=== PATIENT | female | born 1990 | race Caucasian/White ===

== ENCOUNTER → 2019-06-12 | Outpatient (CLI) | payer OTHER ==
--- NOTE | 2019-06-12 21:05 | CONS ---
CONSULTATION DATE OF SERVICE: 06/12/2019 This patient is a 28-year-old lady who has been evaluated in the sleep center for possible obstructive sleep apnea-hypopnea syndrome. HISTORY OF PRESENT ILLNESS/SLEEP-WAKE EVALUATION: Patient's usual sleep schedule on weekdays is from around 10 p.m. to 6:15 a.m. and on weekends from midnight until 8 a.m. Sometimes the patient has problems with falling asleep, although no TV in bedroom. She sleeps in different positions, but most on the side. She has loud snoring, according to her , and grinds her teeth during sleep. She wakes up from sleep 2 times with one episode of nocturia. In the morning the patient wakes up tired and feels sleepy during the day. [place] Sleepiness Scale is 8. She has episodes of irritability, depression and anxiety. No history of hypnagogic hallucinations, sleep paralysis or cataplexy. MEDICATIONS: 1. Adderall 30 mg 2 times a day, in the morning and around 1 p.m. 2. Melatonin. PAST SURGICAL HISTORY: Cervical surgery. SOCIAL HISTORY: Positive for smoking for about 10 years, 1 pack per week. Alcohol consumption: None. FAMILY HISTORY: Thyroid problems, mental illness. REVIEW OF SYSTEMS: Loud snoring, awakenings from sleep, sleepiness during the day, even while taking 60 mg of Adderall. PHYSICAL EXAMINATION: GENERAL: A pleasant 28-year-old lady without distress. VITAL SIGNS: BP 111/81, HR 84, RR 16, height 5 feet 3 inches, weight 171.4 pounds, temperature 97.8, oxygen saturation at room air 100%. HEENT: PERRLA, EOMI. Evaluation of oropharynx showed tongue protrudes midline. Extremely low position of soft palate. Mallampati IV-III. Restriction of nasal breathing. NECK: Supple. No JVD. Thyroid is not palpable. Neck is 13 inches in circumference. LUNGS: Clear to percussion and to auscultation. Good air exchange. No wheezing or rhonchi. HEART: S1, S2 regular. No murmurs, gallops or rubs. ABDOMEN: Soft and nontender. Bowel sounds are present. No organomegaly. EXTREMITIES: No clubbing or cyanosis. DRAWING OPERATOR: Awake, alert, and oriented X3. Cranial nerves 2 to 7 intact. There is no fasciculation or atrophy. noted. No focal deficits observed. IMPRESSION: 1. Loud snoring, awakenings from sleep, low position of soft palate, excessive daytime sleepiness; possible obstructive sleep apnea-hypopnea syndrome. 2. History of attention deficit hyperactivity disorder, on treatment with Adderall. 3. Tiredness and sleepiness while patient is on Adderall 60 mg a day, with [place] Sleepiness Scale of 8. Differential diagnosis should include hypersomnia and narcolepsy without cataplexy. 4. Bipolar disorder, type 1. 5. Status post cervical surgery. PLAN: 1. Polysomnography for evaluation of patient's breathing during sleep. 2. CPAP/BiPAP titration if sleep study confirms obstructive sleep apnea-hypopnea syndrome. 3. Preferable position during sleep on the side. 4. No driving if patient feels any sleepiness. 5. I will see patient for follow up visit to explain results of testing and following plan. 6. Multiple sleep latency test if the sleep study is negative for obstructive sleep apnea-hypopnea syndrome. No Adderall during the test. Thank you very much for referring this patient for consultation. Sincerely, Jacky Delong MD, PhD, FAASM Diplomat of [employer] [employer] [employer] [facility] [place] MMODL / IJN: [id number] /
== END | disposition home or self-care (01) ==
LOC: SLEEP 15:41
PROVIDERS: ATTEND Internal Medicine
DX: G47.10 Hypersomnia, unspecified (principal); R06.83 Snoring; F31.9 Bipolar disorder, unspecified; F17.210 Nicotine dependence, cigarettes, uncomplicated; Z86.59 Personal history of other mental and behavioral disorders; Z98.890 Other specified postprocedural states; Z79.899 Other long term (current) drug therapy
CPT/HCPCS: 99211

== ENCOUNTER → 2019-08-01 | Outpatient (CLI) | payer OTHER ==
--- NOTE | 2019-08-01 13:42 | SFUN ---
SLEEP CENTER FOLLOW UP NOTE DATE OF SERVICE: 08/01/2019 This 28-year-old lady had been followed in sleep center to discuss results of sleep studies and following plan. Polysomnogram did not show significant respiratory abnormalities. Total apnea-hypopnea index was 4.0 with lowest oxygen level 92.2%, which by today's criteria is in normal range. No significant periodic limb movements have been documented. Multiple sleep latency test showed short mean sleep latency of 6 minutes. No sleep onset REM periods have been documented. Patient usual sleep schedule on school days from 10 p.m. to 6:15 a.m. then she drives her daughter's to school and sleeps for about 3-1/2 hours in the morning and additional 2 hours in the afternoon, which is total about 13 hours. On days when her daughter not at school, she goes to bed around 10 p.m. and sleeps until 11a.m.next day, which is also about 13 hours. The patient is on treatment with Adderall 30 mg 2 times a day for ADHD, and with Adderall she continued to feel sleepy during the day. Today, she took her Adderall. [place] Sleepiness Scale is 12. MEDICATIONS: Adderall 30 mg b.i.d. and melatonin 20 mg at bedtime. PHYSICAL EXAMINATION: During physical exam, patient in no distress. VITAL SIGNS: BP 124/79, HR 84, RR 16, height 5 feet 3 inches, weight 173, body mass index 30.6, oxygen saturation on room air 99%. HEENT: PERRLA, EOMI. Oropharynx low position of soft palate. Mallampati 3. NECK: Supple, no JVD. Thyroid is not palpable. LUNGS: Clear to percussion and to auscultation. Good air exchange. No wheezing or rhonchi. HEART: S1, S2 regular. No murmurs, gallops, or rubs. ABDOMEN: Soft and nontender. Bowel sounds are present. No organomegaly appreciated. EXTREMITIES: No clubbing or cyanosis. DANCE ENTERTAINER:Awake, alert, and oriented X3. Cranial nerves 2 to 7 intact. There is no fasciculation or atrophy. noted. No focal deficits observed. IMPRESSION: 1. Very minimal abnormalities of respiration during the sleep. Apnea-hypopnea index is 4, which is considered to be normal range by today's criteria. No oxygen desaturation. Lowest oxygen level at night 92%. 2. Multiple sleep latency test confirmed sleepiness. Mean sleep latency 6 minutes. No sleep onset REM periods have been documented during the MSLT. 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 3. But short REM sleep latency during diagnostic sleep study, 34.5 minutes, which also may indicate possibility of narcolepsy. 4. History of attention deficit hyperactivity disorder, on treatment with Adderall, but continued to feel sleepy. 5. Bipolar disorder, type I. 6. Status post cervical surgery. PLAN: 1. I will start patient on treatment with modafinil slowly adjusting dose for sleepiness to avoid any side effects. 2. The patient will continue to take Adderall for ADHD. 3. Watching and losing weight. 4. Sleep hygiene with regular time in bed for 8 hours. 5. Extreme precautions to driving. No driving if feeling sleepiness. Patient promised to follow recommendation and she is aware about civil and criminal liability for unsafe driving. 6. Preferable position during sleep on the side. Thank you very much for allowing me to participate in management of your patient. Sincerely, Jacky Delong MD, PhD, FAASM Diplomat of [place] [employer] [employer] [facility] [place] MMSMITHL / MILADISN: [id number] /
== END | disposition home or self-care (01) ==
LOC: SLEEP 11:34
PROVIDERS: ATTEND Internal Medicine
DX: G47.52 REM sleep behavior disorder (principal); R06.89 Other abnormalities of breathing; F90.9 Attention-deficit hyperactivity disorder, unspecified type; F31.9 Bipolar disorder, unspecified; Z98.890 Other specified postprocedural states; Z79.899 Other long term (current) drug therapy

== ENCOUNTER 2024-08-03 05:40 | Observation (INO) | payer OTHER ==
--- NOTE | 2024-08-03 06:37 | ED ---
General Adult HPI - General Stated complaint: Abd pain Time Seen by Provider: 08/03/24 05:59 Source: patient, RN notes reviewed Mode of arrival: ambulatory Limitations: no limitations - History of Present Illness Initial comments: 33-year-old female presents emergency department with chief complaint of right upper quadrant abdominal pain, right side pain. Patient states started around 10 PM last night. She tried multiple antacids without relief. Patient states that she did have pizza for dinner. She denies any prior abdominal surgeries denies chest pain or shortness of breath no fever chills patient offers no complaints of urinary symptoms and chance . - Related Data Home Medications Medication Instructions Recorded Confirmed No Known Home Medications 08/27/14 08/27/14 Allergies Allergy/AdvReac Type Severity Reaction Status Date / Time No Known Allergies Allergy Verified 08/03/24 06:33 Review of Systems ROS Statement: Those systems with pertinent positive or pertinent negative responses have been documented in the HPI. ROS Other: All systems not noted in ROS Statement are negative. Past Medical History Past Medical History: No Reported History History of Any Multi-Drug Resistant Organisms: None Reported Additional Past Surgical History / Comment(s): cerclage Past Psychological History: No Psychological Hx Reported Past Alcohol Use History: Occasional General Exam Limitations: no limitations General appearance: alert, in no apparent distress Head exam: Present: atraumatic, normocephalic, normal inspection Neck exam: Present: normal inspection, full ROM. Absent: tenderness, meningismus, lymphadenopathy Respiratory exam: Present: normal lung sounds bilaterally. Absent: respiratory distress, wheezes, rales, rhonchi, stridor Cardiovascular Exam: Present: regular rate, normal rhythm, normal heart sounds. Absent: systolic murmur, diastolic murmur, rubs, gallop, clicks GI/Abdominal exam: Present: soft, normal bowel sounds. Absent: distended, tenderness, guarding, rebound, rigid Back exam: Absent: CVA tenderness (R), CVA tenderness (L) Neurological exam: Present: alert Course Vital Signs 08/03/24 06:33 Temperature 97.9 F Pulse Rate 71 Respiratory 17 Rate Blood Pressure 134/73 O2 Sat by Pulse 98 Oximetry Medical Decision Making - Medical Decision Making Was pt. sent in by a medical professional or institution (, PA, MANAGEMENT TRAINEE PROGRAM STORES, urgent care, hospital, or halfway...) When possible be specific @ -No Did you speak to anyone other than the patient for history (EMS, parent, family, police, friend...)? What history was obtained from this source @ -No Did you review nursing and triage notes (agree or disagree)? Why? @ -I reviewed and agree with nursing and triage notes Were old charts reviewed (outside hosp., previous admission, EMS record, old EKG, old radiological studies, urgent care reports/EKG's, halfway records)? Report findings @ -No old charts were reviewed Differential Diagnosis (chest pain, altered mental status, abdominal pain women, abdominal pain men, vaginal bleeding, weakness, fever, dyspnea, syncope, headache, dizziness, GI bleed, back pain, seizure, CVA, palpatations, mental health, musculoskeletal)? @ -Differential Abdominal Pain Women: Appendicitis, Cholecystitis, diverticulosis, ischemic bowel, pancreatitis, hepatitis, UTI, gastroenteritis, AAA, incarcerated hernia, bowel obstruction, constipation, inflammatory bowel, hepatitis, peptic ulcer disease, splenic infarction, perforated viscus, vulvitis, ovarian torsion, PID, kidney stone, placenta abruption, this is not meant to be an all-inclusive list EKG interpreted by me (3pts min.). @ -None X-rays interpreted by me (1pt min.). @ -None done CT interpreted by me (1pt min.). @ -None done U/S interpreted by me (1pt. min.). @ -[Ultrasound gallbladder showing evidence of gallstones, gallstones within gallbladder neck What testing was considered but not performed or refused? (CT, X-rays, U/S, l abs)? Why? @ -None What meds were considered but not given or refused? Why? @ -None Did you discuss the management of the patient with other professionals (professionals i.e. , PA, MANAGEMENT TRAINEE PROGRAM STORES, lab, RT, psych nurse, social work coordinator, entry processor, teacher, seismology technical officer, social work case manager)? Give summary @ -Dr. Feliciano for admission Was smoking cessation discussed for >3mins.? @ -No Was critical care preformed (if so, how long)? @ -No Were there social determinants of health that impacted care today? How? (Homelessness, low income, unemployed, alcoholism, drug addiction, transportation, low edu. Level, literacy, decrease access to med. care, alf, rehab)? @ -No Was there de-escalation of care discussed even if they declined (Discuss DNR or withdrawal of care, Hospice)? DNR status @ -No What co-morbidities impacted this encounter? (DM, HTN, Smoking, COPD, CAD, Cancer, CVA, ARF, Chemo, Hep., AIDS, mental health diagnosis, sleep apnea, morbid obesity)? @ -None Was patient admitted / discharged? Hospital course, mention meds given and route, prescriptions, significant lab abnormalities, going to OR and other pertinent info. @ -[Admitted to surgery for probable surgical intervention patient was started on IV antibiotics, analgesics, antiemetics patient found to have cholelithiasis without evidence of choledocholithiasis Undiagnosed new problem with uncertain prognosis? @ -No Drug Therapy requiring intensive monitoring for toxicity (Heparin, Nitro, Insulin, Cardizem)? @ -No Were any procedures done? @ -No Diagnosis/symptom? @ -Cholelithiasis Acute, or Chronic, or Acute on Chronic? @ -Acute Uncomplicated (without systemic symptoms) or Complicated (systemic symptoms)? @ -complicated Side effects of treatment? @ -No Exacerbation, Progression, or Severe Exacerbation? @ -No Poses a threat to life or bodily function? How? (Chest pain, [place], [place], pneumonia, PE, COPD, DKA, ARF, appy, cholecystitis, CVA, Diverticulitis, Homicidal, Suicidal, threat to staff... and all critical care pts) @ -Yes surgical risk - Lab Data Result diagrams: 08/03/24 06:42 08/03/24 06:42 Lab Results 08/03/24 08/03/24 08/03/24 Range/Units 06:42 06:42 06:42 WBC 7.2 (3.8-10.6) k/uL RBC 3.99 (3.80-5.40) m/uL Hgb 11.2 L (11.4-16.0) gm/dL Hct 32.7 L (34.0-46.0) % MCV 82.0 (80.0-100.0) fL MCH 28.1 (25.0-35.0) pg MCHC 34.3 (31.0-37.0) g/dL RDW 12.2 (11.5-15.5) % Plt Count 453 H (150-450) k/uL MPV 6.4 Neutrophils % 52 % Lymphocytes % 38 % Monocytes % 4 % Eosinophils % 4 % Basophils % 1 % Neutrophils # 3.7 (1.3-7.7) k/uL Lymphocytes # 2.8 (1.0-4.8) k/uL Monocytes # 0.3 (0-1.0) k/uL Eosinophils # 0.3 (0-0.7) k/uL Basophils # 0.0 (0-0.2) k/uL Sodium 137 (137-145) mmol/L Potassium 4.0 (3.5-5.1) mmol/L Chloride 105 (98-107) mmol/L Carbon Dioxide 25 (22-30) mmol/L Anion Gap 7 mmol/L BUN 12 (7-17) mg/dL Creatinine 0.64 (0.52-1.04) mg/dL Est GFR (CKD-EPI)AfAm >90 (>60 ml/min/1.73 sqM) Est GFR (CKD-EPI)NonAf >90 (>60 ml/min/1.73 sqM) Glucose 90 (74-99) mg/dL Calcium 10.3 H (8.4-10.2) mg/dL Total Bilirubin 0.4 (0.2-1.3) mg/dL AST 20 (14-36) U/L ALT 20 (4-34) U/L Alkaline Phosphatase 50 (38-126) U/L Total Protein 6.6 (6.3-8.2) g/dL Albumin 4.2 (3.5-5.0) g/dL Lipase 57 (23-300) U/L Urine Color Light Yellow Urine Appearance Clear (Clear) Urine pH 5.5 (5.0-8.0) Ur Specific [place] 1.020 (1.001-1.035) Urine Protein Negative (Negative) Urine Glucose (UA) Negative (Negative) Urine Ketones Negative (Negative) Urine Blood Negative (Negative) Urine Nitrite Negative (Negative) Urine Bilirubin Negative (Negative) Urine Urobilinogen <2.0 (<2.0) mg/dL Ur Leukocyte Esterase Negative (Negative) Urine HCG, Qual (Not Detectd) 08/03/24 Range/Units 06:42 WBC (3.8-10.6) k/uL RBC (3.80-5.40) m/uL Hgb (11.4-16.0) gm/dL Hct (34.0-46.0) % MCV (80.0-100.0) fL MCH (25.0-35.0) pg MCHC (31.0-37.0) g/dL RDW (11.5-15.5) % Plt Count (150-450) k/uL MPV Neutrophils % % Lymphocytes % % Monocytes % % Eosinophils % % Basophils % % Neutrophils # (1.3-7.7) k/uL Lymphocytes # (1.0-4.8) k/uL Monocytes # (0-1.0) k/uL Eosinophils # (0-0.7) k/uL Basophils # (0-0.2) k/uL Sodium (137-145) mmol/L Potassium (3.5-5.1) mmol/L Chloride (98-107) mmol/L Carbon Dioxide (22-30) mmol/L Anion Gap mmol/L BUN (7-17) mg/dL Creatinine (0.52-1.04) mg/dL Est GFR (CKD-EPI)AfAm (>60 ml/min/1.73 sqM) Est GFR (CKD-EPI)NonAf (>60 ml/min/1.73 sqM) Glucose (74-99) mg/dL Calcium (8.4-10.2) mg/dL Total Bilirubin (0.2-1.3) mg/dL AST (14-36) U/L ALT (4-34) U/L Alkaline Phosphatase (38-126) U/L Total Protein (6.3-8.2) g/dL Albumin (3.5-5.0) g/dL Lipase (23-300) U/L Urine Color Urine Appearance (Clear) Urine pH (5.0-8.0) Ur Specific [place] (1.001-1.035) Urine Protein (Negative) Urine Glucose (UA) (Negative) Urine Ketones (Negative) Urine Blood (Negative) Urine Nitrite (Negative) Urine Bilirubin (Negative) Urine Urobilinogen (<2.0) mg/dL Ur Leukocyte Esterase (Negative) Urine HCG, Qual Not Detected (Not Detectd) Disposition Clinical Impression: Cholelithiasis Disposition: ADMITTED IP TO THIS [facility] Condition: Fair Referrals: Rima Aleman DO [Primary Care Provider] - 1-2 days Time of Disposition: 08:54
--- NOTE | 2024-08-03 07:40 | US ---
EXAMINATION TYPE: US gallbladder DATE OF EXAM: 08/03/2024 COMPARISON: NONE CLINICAL INDICATION: Female, 33 years old with history of pain; TECHNIQUE: Multiple sonographic images of the right upper quadrant are obtained. FINDINGS: EXAM MEASUREMENTS: Liver Length: 16.6 cm Gallbladder Wall: 0.3 cm CBD: 0.3 cm Right Kidney: 10.2 x 4.1 x 4.8 cm TESTBOARD OPERATOR NOTES: Pancreas: wnl Liver: wnl Gallbladder: Stones seen within neck , no pericholecystic fluid or wall thickening. Evidence for sonographic Andrea's sign: Yes CBD: wnl Right Kidney: wnl IMPRESSION: Cholelithiasis with telescope maintenance reported positive sonographic Andrea's sign. There is no additional e vidence of acute cholecystitis, correlate clinically, consider HIDA scan.
[2024-08-03] MEDS: KETOROLAC 15 MG/ML 1 ML VIAL IVP STA (08:02)
[2024-08-03] MEDS: ONDANSETRON 4 MG/2 ML VIAL IVP STA (08:06)
[2024-08-03 08:17] LABS: Basophils % (A) 1 %; Eosinophils # (A) 0.3 k/uL (0-0.7); Eosinophils % (A) 4 %; HCT 32.7 % (34.0-46.0); HGB 11.2 gm/dL (11.4-16.0); Lymphocytes # (A) 2.8 k/uL (1.0-4.8); Lymphocytes % (A) 38 %; MCH 28.1 pg (25.0-35.0); MCHC 34.3 g/dL (31.0-37.0); Mean Platelet Volume 6.4; Monocytes # (A) 0.3 k/uL (0-1.0); Monocytes % (A) 4 %; Neutrophils # (A) 3.7 k/uL (1.3-7.7); Neutrophils % (A) 52 %; Platelet Count 453 k/uL (150-450); RBC 3.99 m/uL (3.80-5.40); RDW 12.2 % (11.5-15.5); WBC 7.2 k/uL (3.8-10.6)
[2024-08-03 08:28] LABS: Appearance,Urine Clear (Clear); Bilirubin,Urine Negative (Negative); Blood,Urine Negative (Negative); Color,Urine Light Yellow; Glucose,Urine (UA) Negative (Negative); Ketones,Urine Negative (Negative); Leukocyte Esterase,Urine Negative (Negative); Nitrite,Urine Negative (Negative); PH, Urine 5.5 (5.0-8.0); Protein,Urine Negative (Negative); Urobilinogen,Urine <2.0 mg/dL (<2.0)
[2024-08-03 08:37] LABS: ALT 20 U/L (4-34); AST 20 U/L (14-36); African American GFR (CKD) >90 (>60 ml/min/1.73 sqM); Albumin 4.2 g/dL (3.5-5.0); Alkaline Phosphatase 50 U/L (38-126); Anion Gap 7 mmol/L; Blood Urea Nitrogen 12 mg/dL (7-17); Calcium 10.3 mg/dL (8.4-10.2); Carbon Dioxide 25 mmol/L (22-30); Chloride 105 mmol/L (98-107); Glucose 90 mg/dL (74-99); Lipase 57 U/L (23-300); Non-African American GFR(CKD) >90 (>60 ml/min/1.73 sqM); Sodium 137 mmol/L (137-145); Total Bilirubin 0.4 mg/dL (0.2-1.3); Total Protein 6.6 g/dL (6.3-8.2)
[2024-08-03] MEDS ORDERED: NALOXONE 0.4 MG/ML 1 ML VIAL IV PRN (08:51)
[2024-08-03] MEDS: SODIUM CHLORIDE 0.9% 1,000 ML IV SCH (09:11)
[2024-08-03] MEDS: PIPERACILLIN-TAZOBACTAM 3.375 GM in SODIUM CHLORIDE 0.9% 100 ML IVPB SCH (09:11)
[2024-08-03] MEDS: HYDROmorphone 0.5 MG/0.5 ML SYRINGE IVP PRN (09:52)
[2024-08-03] MEDS: ONDANSETRON 4 MG/2 ML VIAL IVP PRN (09:53)
--- NOTE | 2024-08-03 10:29 | P.GSHP ---
History of Present Illness H&P Date: 08/03/24 33-year-old female presented to the emergency department with chief complaint of right upper quadrant abdominal pain. Patient states started around 10 PM last night. She tried multiple antacids without relief. Patient states that she did have pizza for dinner. She denies any prior abdominal surgeries denies chest pain or shortness of breath no fever chills patient offers no complaints of urinary symptoms and chance . She had a RUQ US performed concerning for acute cholecystitis with stone impacted in Gallbladder neck. Review of Systems ROS Statement: Those systems with pertinent positive or pertinent negative responses have been documented in the HPI. ROS Other: All systems not noted in ROS Statement are negative. Past Medical History Past Medical History: No Reported History History of Any Multi-Drug Resistant Organisms: None Reported Additional Past Surgical History / Comment(s): cerclage Past Psychological History: No Psychological Hx Reported Past Alcohol Use History: Occasional General Exam Limitations: no limitations General appearance: alert, in no apparent distress Head exam: Present: atraumatic, normocephalic, normal inspection Neck exam: Present: normal inspection, full ROM. Absent: tenderness, meningismus, lymphadenopathy Respiratory exam: Present: normal lung sounds bilaterally. Absent: respiratory distress, wheezes, rales, rhonchi, stridor Cardiovascular Exam: Present: regular rate, normal rhythm, normal heart sounds. Absent: systolic murmur, diastolic murmur, rubs, gallop, clicks GI/Abdominal exam: Present: soft, normal bowel sounds. Absent: distended, tenderness, guarding, rebound, rigid Back exam: Absent: CVA tenderness (R), CVA tenderness (L) Neurological exam: Present: alert 33 year old female acute cholecystitis -US reviewed -FLD -Zosyn -Will plan for Cholecystectomy in the next 24 hours Phillip Feliciano DO [facility] [phone] Past Medical History Past Medical History: No Reported History History of Any Multi-Drug Resistant Organisms: None Reported Additional Past Surgical History / Comment(s): cerclage Past Psychological History: No Psychological Hx Reported Past Alcohol Use History: Occasional Medications and Allergies Home Medications Medication Instructions Recorded Confirmed Type No Known Home Medications 08/27/14 08/27/14 History Allergies Allergy/AdvReac Type Severity Reaction Status Date / Time No Known Allergies Allergy Verified 08/03/24 06:33 Surgical - Exam Vital Signs Temp Pulse Resp BP Pulse Ox 97.9 F 71 17 134/73 98 08/03/24 06:33 08/03/24 06:33 08/03/24 06:33 08/03/24 06:33 08/03/24 06:33 Results - Labs 08/03/24 06:42 08/03/24 06:42 Abnormal Lab Results - Last 24 Hours (Table) 08/03/24 08/03/24 Range/Units 06:42 06:42 Hgb 11.2 L (11.4-16.0) gm/dL Hct 32.7 L (34.0-46.0) % Plt Count 453 H (150-450) k/uL Calcium 10.3 H (8.4-10.2) mg/dL Diabetes panel 08/03/24 Range/Units 06:42 Sodium 137 (137-145) mmol/L Potassium 4.0 (3.5-5.1) mmol/L Chloride 105 (98-107) mmol/L Carbon Dioxide 25 (22-30) mmol/L BUN 12 (7-17) mg/dL Creatinine 0.64 (0.52-1.04) mg/dL Glucose 90 (74-99) mg/dL Calcium 10.3 H (8.4-10.2) mg/dL AST 20 (14-36) U/L ALT 20 (4-34) U/L Alkaline Phosphatase 50 (38-126) U/L Total Protein 6.6 (6.3-8.2) g/dL Albumin 4.2 (3.5-5.0) g/dL Calcium panel 08/03/24 Range/Units 06:42 Calcium 10.3 H (8.4-10.2) mg/dL Albumin 4.2 (3.5-5.0) g/dL Pituitary panel 08/03/24 Range/Units 06:42 Sodium 137 (137-145) mmol/L Potassium 4.0 (3.5-5.1) mmol/L Chloride 105 (98-107) mmol/L Carbon Dioxide 25 (22-30) mmol/L BUN 12 (7-17) mg/dL Creatinine 0.64 (0.52-1.04) mg/dL Glucose 90 (74-99) mg/dL Calcium 10.3 H (8.4-10.2) mg/dL Adrenal panel 08/03/24 Range/Units 06:42 Sodium 137 (137-145) mmol/L Potassium 4.0 (3.5-5.1) mmol/L Chloride 105 (98-107) mmol/L Carbon Dioxide 25 (22-30) mmol/L BUN 12 (7-17) mg/dL Creatinine 0.64 (0.52-1.04) mg/dL Glucose 90 (74-99) mg/dL Calcium 10.3 H (8.4-10.2) mg/dL Total Bilirubin 0.4 (0.2-1.3) mg/dL AST 20 (14-36) U/L ALT 20 (4-34) U/L Alkaline Phosphatase 50 (38-126) U/L Total Protein 6.6 (6.3-8.2) g/dL Albumin 4.2 (3.5-5.0) g/dL
--- NOTE | 2024-08-03 19:29 | P.CONS ---
History of Present Illness - Reason for Consult Consult date: 08/03/24 Medical management - Chief Complaint Abdominal pain - History of Present Illness Patient is a 33-year-old female with a known history of diabetes [id number], anxiety/depression and daily vaping presents to ER with complaints of abdominal pain. Patient states that yesterday around 10 PM she started having right upper quadrant abdominal pain below the rib cage and radiated towards the umbilicus. Associated with fever chills and nausea. No episodes of vomiting. Patient tried multiple antacids without much relief. Denied any prior abdominal surgeries. No complaints of cough or sputum production. No chest pain or shortness of breath. No recent diarrhea. Ultrasound gallbladder showed cholelithiasis with sonographic reported positive sonographic Andrea sign. There is no additional evidence of acute cholecystitis. Correlate clinically., Consider HIDA scan. Laboratory data showed WBC 7.2 hemoglobin 11.2 and platelets 453 MCV 82.0, sodium 137 potassium 4.0 chloride 104 bicarb is 25 BUN 12 and creatinine 0.64 and blood sugar 90 and calcium 10.3 Urinalysis is negative for infection. Lipase 57 and liver enzymes are not elevated. Review of Systems Constitutional: Patient does have subjective fever and chills.. No generalized weakness or weight loss. Abdomen: Patient does have nausea. Abdominal pain. No diarrhea or vomiting. Cardiovascular: Patient denies any chest pain or short of breath no palpitations. Respiratory: patient denied any cough or sputum production. No shortness of breath Neurologic: Patient denied any numbness or tingling. no headache. Musculoskeletal: Patient denies any complaints of joint swelling or deformity. Skin: Negative Psychiatric: Negative Endocrine: No heat or cold intolerance. No recent weight gain. Genitourinary: No dysuria or hematuria. All other 14 point ROS negative except the above Past Medical History Past Medical History: No Reported History History of Any Multi-Drug Resistant Organisms: None Reported Additional Past Surgical History / Comment(s): cerclage Past Psychological History: No Psychological Hx Reported Smoking Status: Vaper Past Alcohol Use History: Occasional Past Drug Use History: None Reported Medications and Allergies Home Medications Medication Instructions Recorded Confirmed Type Lisdexamfetamine Dimesylate 30 mg PO AC-BRKFST 08/03/24 08/03/24 History [Vyvanse] Lisdexamfetamine Dimesylate 40 mg PO AC-BRKFST 08/03/24 08/03/24 History [Vyvanse] busPIRone HCL [Buspar] 30 mg PO BID 08/03/24 08/03/24 History hydrOXYzine pamoate [Vistaril] 25 mg PO QID 08/03/24 08/03/24 History lamoTRIgine 150 mg PO BID 08/03/24 08/03/24 History metFORMIN HCL 500 mg PO DAILY 08/03/24 08/03/24 History Allergies Allergy/AdvReac Type Severity Reaction Status Date / Time No Known Allergies Allergy Verified 08/03/24 17:31 Physical Exam Vitals: Vital Signs Temp Pulse Pulse Resp BP BP Pulse Ox 08/03/24 17:52 98.2 F 56 L 16 102/60 99 08/03/24 16:57 78 18 94/63 96 08/03/24 15:00 98.2 F 56 L 16 102/60 99 08/03/24 10:30 113/77 97 08/03/24 10:00 122/82 97 08/03/24 06:33 97.9 F 71 17 134/73 98 Intake and Output 08/03/24 08/03/24 08/03/24 06:59 14:59 22:59 Other: Weight 86.183 kg 86.183 kg PHYSICAL EXAMINATION: Patient is lying in the bed comfortably, no acute distress, awake alert and oriented.. HEENT: Normocephalic. Neck is supple. Pupils reactive. Nostrils clear. Oral cavity is moist. Neck reveals no JVD, carotid bruits, or thyromegaly. CHEST EXAMINATION: Trachea is central. Symmetrical expansion. Lung gerardo clear to auscultation and percussion. CARDIAC: Normal S1, S2 with no gallops. No murmurs ABDOMEN: Soft. Bowel sounds present. Right upper quadrant tenderness with positive Andrea sign.. No organomegaly. No abdominal bruits. Extremities: reveal no edema. No clubbing or cyanosis Neurologically awake, alert, oriented x3 with well-coordinated movements. No focal deficits noted Skin: No rash or skin lesions. Psychiatric: Coperative. Nonsuicidal Musculoskeletal: No joint swelling or deformity. Normal range of motion. Results CBC & Chem 7: 08/03/24 06:42 08/03/24 06:42 Labs: Abnormal Lab Results - Last 24 Hours (Table) 08/03/24 08/03/24 Range/Units 06:42 06:42 Hgb 11.2 L (11.4-16.0) gm/dL Hct 32.7 L (34.0-46.0) % Plt Count 453 H (150-450) k/uL Calcium 10.3 H (8.4-10.2) mg/dL Assessment and Plan Assessment: Right upper quadrant abdominal pain with positive sonographic Andrea sign. Acute cholecystitis Anxiety/depression Diabetes type 2 gum-jtvllxj-ykoycciuo DVT prophylaxis and GI prophylaxis. Plan: Patient will be continued on IV hydration. Continue with pain management. Empiric antibiotics in the form of Zosyn. General surgery is planning for cholecystectomy in the next 24 hours. Patient will be managed on insulin sliding scale. Follow-up repeat CMP and monitor H&H. Patient is at low risk for abdominal surgery. Further recom mendations based on the clinical course. Thank you kindly for your consult.
[2024-08-03] MEDS: busPIRone HCl 10 MG TAB PO SCH (20:09)
[2024-08-03] MEDS: FAMOTIDINE 20 MG TAB PO SCH (20:09)
[2024-08-03] MEDS: lamoTRIgine 100 MG TAB PO SCH (20:10)
--- NOTE | 2024-08-04 06:35 | P.PN ---
Progress Note - Text Progress Note Date: 08/04/24 KAYLEENEO. Patient resting comfortable. Having some RUQ pain. VSS General-NAD Abdomen-soft, TTP RUQ, ND 33 year old female acute cholecystitis -US reviewed -FLD, NPO/midnight -Xavier -Boarded for Cholecystectomy tomorrrow morning 08/05 Phillip Feliciano [facility] [phone]
[2024-08-04 09:36] LABS: Basophils # (A) 0.04 X 10*3/uL (0.00-0.10); Basophils % (A) 0.6 %; Eosinophils # (A) 0.26 X 10*3/uL (0.04-0.35); Eosinophils % (A) 3.8 %; HGB 10.2 g/dL (12.0-15.0); Lymphocytes % (A) 45.7 %; MCH 27.9 pg (27.0-32.0); MCHC 32.9 g/dL (32.0-37.0); MCV 84.9 FL (80.0-97.0); Mean Platelet Volume 9.6 FL (9.5-12.2); Monocytes # (A) 0.37 X 10*3/uL (0.20-1.00); Monocytes % (A) 5.4 %; NRBC Per 100 WBC 0 X 10*3/uL (0.00-0.01); Neutrophils # (A) 2.99 X 10*3/uL (1.80-7.70); Neutrophils % (A) 44.1 %; Platelet Count 387 X 10*3/uL (140-440); RBC 3.65 X 10*6/uL (4.10-5.20); RDW 12.5 % (11.5-14.5); WBC 6.79 X 10*3/uL (4.50-10.00)
[2024-08-04 10:01] LABS: ALT 16 U/L (8-44); AST 13 U/L (13-35); Albumin 3.7 g/dL (3.8-4.9); Albumin/Globulin Ratio 1.95 Ratio (1.60-3.17); Alkaline Phosphatase 49 U/L (41-126); BUN/Creat Ratio 10.12 Ratio (12.00-20.00); Blood Urea Nitrogen 8.1 mg/dL (9.0-27.0); Calcium 8.5 mg/dL (8.7-10.3); Carbon Dioxide 22.9 mmol/L (21.6-31.8); Chloride 108 mmol/L (96-109); Globulin 1.9 g/dL (1.6-3.3); Glucose 82 mg/dL (70-110); Potassium 4.2 mmol/L (3.5-5.5); Sodium 139 mmol/L (135-145); Total Bilirubin 0.2 mg/dL (0.3-1.2); Total Protein 5.6 g/dL (6.2-8.2)
[2024-08-05 09:47] LABS: Basophils # (A) 0.04 X 10*3/uL (0.00-0.10); Basophils % (A) 0.6 %; Eosinophils # (A) 0.27 X 10*3/uL (0.04-0.35); Eosinophils % (A) 3.9 %; HCT 30.2 % (37.2-46.3); HGB 10.1 g/dL (12.0-15.0); Lymphocytes # (A) 2.97 X 10*3/uL (0.90-5.00); Lymphocytes % (A) 42.6 %; MCH 28.9 pg (27.0-32.0); MCHC 33.4 g/dL (32.0-37.0); MCV 86.3 FL (80.0-97.0); Mean Platelet Volume 9.7 FL (9.5-12.2); Monocytes # (A) 0.41 X 10*3/uL (0.20-1.00); Monocytes % (A) 5.9 %; NRBC Per 100 WBC 0 X 10*3/uL (0.00-0.01); Neutrophils # (A) 3.28 X 10*3/uL (1.80-7.70); Neutrophils % (A) 46.9 %; Platelet Count 373 X 10*3/uL (140-440); RDW 12.6 % (11.5-14.5); WBC 6.98 X 10*3/uL (4.50-10.00)
[2024-08-05 10:19] LABS: ALT 18 U/L (8-44); AST 15 U/L (13-35); Albumin 3.9 g/dL (3.8-4.9); Albumin/Globulin Ratio 2.17 Ratio (1.60-3.17); Alkaline Phosphatase 46 U/L (41-126); BUN/Creat Ratio 6.12 Ratio (12.00-20.00); Bilirubin, Conjugated <0.20 mg/dL (0.20-0.40); Bilirubin,Unconjugated >0 mg/dL (0.20-1.00); Blood Urea Nitrogen 4.9 mg/dL (9.0-27.0); Calcium 8.8 mg/dL (8.7-10.3); Carbon Dioxide 22.4 mmol/L (21.6-31.8); Chloride 107 mmol/L (96-109); Globulin 1.8 g/dL (1.6-3.3); Glucose 81 mg/dL (70-110); Potassium 4.4 mmol/L (3.5-5.5); Sodium 139 mmol/L (135-145); Total Bilirubin 0.2 mg/dL (0.3-1.2); Total Protein 5.7 g/dL (6.2-8.2)
--- NOTE | 2024-08-05 11:04 | P.PN ---
Subjective Progress Note Date: 08/05/24 N.p.o. for laparoscopic cholecystectomy. Reports right upper quadrant -positive pain. Denies nausea /vomiting. Denies chills or sweats. Complains of headache. Maintained on IV fluid hydration and Zosyn. Afebrile, normal WBC. Renal function stable. Objective - Vital Signs Vital signs: Vital Signs Temp 98.2 F 08/05/24 07:00 Pulse 82 08/05/24 02:00 Resp 16 08/05/24 07:00 BP 111/73 08/05/24 07:00 Pulse Ox 96 08/05/24 07:00 FiO2 Intake & Output 08/04/24 08/05/24 08/05/24 18:59 06:59 18:59 Output Total 300 Balance -300 Output: Urine 300 Other: Voiding Method Toilet Toilet # Voids 2 3 - Exam PHYSICAL EXAMINATION: VS: Reviewed General: Alert and oriented x 3, sitting up in bed, no acute distress HEENT: Normocephalic.Pupils reactive. NECK: Supple, no JVD. CHEST EXAMINATION: Unlabored, equal air entry, clear to auscultation. CARDIAC: Normal S1, S2 with no gallops. No murmurs ABDOMEN: Soft. Right upper quadrant tenderness .bowel sounds present. Right upper quadrant tenderness,+BS Extremities: no edema. No clubbing or cyanosis. NEURO: Cranial nerves II through XII grossly intact, no focal deficits noted Skin: Warm and dry, no rashes noted - Labs CBC & Chem 7: 08/05/24 02:45 08/05/24 02:45 Labs: Abnormal Lab Results - Last 24 Hours (Table) 08/05/24 08/05/24 Range/Units 02:45 02:45 RBC 3.50 L (4.10-5.20) X 10*6/uL Hgb 10.1 L (12.0-15.0) g/dL Hct 30.2 L (37.2-46.3) % BUN 4.9 L (9.0-27.0) mg/dL BUN/Creatinine Ratio 6.12 L (12.00-20.00) Ratio Total Bilirubin 0.2 L (0.3-1.2) mg/dL Unconjugated Bilirubin >0 L (0.20-1.00) mg/dL Total Protein 5.7 L (6.2-8.2) g/dL Assessment and Plan Assessment: RUQ tenderness,Acute cholecystitis Anxiety/depression Diabetes type 2 [id number] DVT prophylaxis and GI prophylaxis. Plan: Continue current medication regimen ,monitoring and symptomatic treatment.NPO, maintain IV fluid hydration, Zosyn. Cholecystectomy pending. IV Tylenol ordered for headache. Aggressive pulmonary toileting with incentive spirometer ordered. PPI ordered for GI prophylaxis. The impression and plan of care has been dictated as directed. : I performed a history and examination of this patient, discussed the same with the dictator. I agree with the dictator's note ,documented as a scribe. Any ad ditional findings or plans will be noted.
[2024-08-05] MEDS: DEXAMETHASONE SOD PHOSPHATE 4 MG/ML 1 ML VIAL IVP STA (12:50)
[2024-08-05] MEDS: IV FLUID CONTINUATION 800 ML IV ONE (13:00)
[2024-08-05] MEDS ORDERED: ROCURONIUM 10 MG/ML (5 ML VIAL) IV ONE (13:08)
[2024-08-05] MEDS ORDERED: SUGAMMADEX SODIUM 200 MG/2 ML SDV IV ONE (13:08)
[2024-08-05] MEDS ORDERED: GLYCOPYRROLATE 0.2 MG/ML 2 ML VIAL ONE (13:08)
[2024-08-05] MEDS ORDERED: KETOROLAC 15 MG/ML 1 ML VIAL ONE (13:08)
[2024-08-05] MEDS ORDERED: LIDOCAINE 1% INJ 10MG/ML (20 ML MDV) ONE (13:08)
[2024-08-05] MEDS ORDERED: PHENYLEPHRINE-0.9% NACL SYG 1,000 MCG/10 ML SYRINGE ONE (13:08)
[2024-08-05] MEDS ORDERED: MIDAZOLAM 2 MG/2 ML VIAL ONE (13:08)
[2024-08-05] MEDS ORDERED: SUCCINYLCHOLINE CHLORIDE 200 MG/10 ML VIAL IV ONE (13:08)
[2024-08-05] MEDS ORDERED: fentaNYL (PF) 50 MCG/ML 2 ML AMP ONE (13:08)
[2024-08-05] MEDS ORDERED: PROPOFOL 10 MG/ML 20 ML VIAL IV ONE (13:08)
[2024-08-05] MEDS: HEPARIN SODIUM,PORCINE 5,000 UNIT/ML 1 ML VIAL SQ STA (13:10)
[2024-08-05] MEDS: BUPIVACAINE (PF) 0.25% 30 ML VIAL SQ ONE (13:53)
[2024-08-05] MEDS: LACTATED RINGERS 1,000 ML IV ONE (13:53)
[2024-08-05] MEDS: HYDROmorphone 0.5 MG/0.5 ML SYRINGE IVP SCH (14:29)
[2024-08-05] MEDS ORDERED: HYDROmorphone 1 MG/ML 1 ML SYRINGE IM PRN (14:31)
--- NOTE | 2024-08-05 14:44 | P.OP ---
Date of Procedure: 08/05/24 Preoperative Diagnosis: Acute Cholecystitis Postoperative Diagnosis: Acute Cholecystitis Procedure(s) Performed: Laparoscopic Cholecystectomy Anesthesia: MAC Surgeon: Phillip Feliciano Estimated Blood Loss (ml): 10 Pathology: other (Gallbladder) Condition: stable Disposition: PACU Description of Procedure: The patient was brought to the operating suite and placed in the supine position. Anesthesia performed endotracheal intubation and anesthesia was given. The patient was prepped and draped in sterile fashion. A timeout was performed prior to starting the procedure. An #11 blade was used to make an incision at [place] and a 5 mm optiview was used to gain access to the abdomen. The abdomen was insufflated. The patient was positioned for cholecystectomy. Additional working ports for cholecystectomy were placed. The gallbladder was retracted by the fundus and infundibulum. Dissection was performed and the cystic artery and cystic duct were clearly dissected out until the duct and artery were clearly seen entering the gallbladder. A critical view of safety was obtained. A clip promotions producer was used to place two clips proximally and two clips distally on both the cystic duct and cystic artery. The duct and artery were then divided with scissors. A hook cautery was then used to take the gallbladder off of the liver. There was no major bleeding encountered. The gallbladder was then removed with an EndoCatch Bag through the 12 mm port. The 12 mm port was then closed with an #0 Vicryl Suture using a Choco Rossy. The ports were then removed. Skin incisions were then closed with #4-0 Monocryl Suture. 1 % Lidocaine was then injected around the incisions. This concluded the procedure. The patient tolerated the surgery well and was sent to the PACU in stable condition.
[2024-08-05] MEDS: ACETAMINOPHEN IV (For NPO) 1,000 MG in EMPTY BAG 1 BAG IVPB STA (15:28)
[2024-08-05] MEDS: PANTOPRAZOLE 40 MG/10 ML VIAL IVP SCH (15:29)
[2024-08-05] MEDS: HYDROcodone/APAP 10-325MG 1 EACH TAB PO PRN (17:38)
[2024-08-05] MEDS: BENZOCAINE/MENTHOL LOZENG 1 EACH LOZENGE MUCOUS MEM PRN (18:11)
[2024-08-05] MEDS: HYDROmorphone 1 MG/ML 1 ML SYRINGE IVP PRN (20:03)
[2024-08-06 07:59] VITALS: BP 123/69; PULSE 69; RESP 16; TEMP 98.4
[2024-08-06 08:54] LABS: ALT 111 U/L (8-44); AST 119 U/L (13-35); Albumin/Globulin Ratio 1.82 Ratio (1.60-3.17); Alkaline Phosphatase 85 U/L (41-126); BUN/Creat Ratio 5.38 Ratio (12.00-20.00); Bilirubin, Conjugated <0.20 mg/dL (0.20-0.40); Bilirubin,Unconjugated >0.10 mg/dL (0.20-1.00); Blood Urea Nitrogen 4.3 mg/dL (9.0-27.0); Calcium 9.1 mg/dL (8.7-10.3); Carbon Dioxide 20.8 mmol/L (21.6-31.8); Chloride 106 mmol/L (96-109); Globulin 2.2 g/dL (1.6-3.3); Glucose 109 mg/dL (70-110); Potassium 4.3 mmol/L (3.5-5.5); Sodium 138 mmol/L (135-145); Total Bilirubin 0.3 mg/dL (0.3-1.2); Total Protein 6.2 g/dL (6.2-8.2)
[2024-08-06 08:54] LABS: Basophils # (A) 0.03 X 10*3/uL (0.00-0.10); Basophils % (A) 0.4 %; Eosinophils # (A) 0.03 X 10*3/uL (0.04-0.35); Eosinophils % (A) 0.4 %; HCT 29.1 % (37.2-46.3); HGB 10.1 g/dL (12.0-15.0); Lymphocytes # (A) 1.66 X 10*3/uL (0.90-5.00); MCH 28.2 pg (27.0-32.0); MCHC 34.7 g/dL (32.0-37.0); MCV 81.3 FL (80.0-97.0); Mean Platelet Volume 9.4 FL (9.5-12.2); Monocytes # (A) 0.49 X 10*3/uL (0.20-1.00); Monocytes % (A) 6.5 %; NRBC Per 100 WBC 0 X 10*3/uL (0.00-0.01); Neutrophils # (A) 5.31 X 10*3/uL (1.80-7.70); Neutrophils % (A) 70.4 %; Platelet Count 385 X 10*3/uL (140-440); RBC 3.58 X 10*6/uL (4.10-5.20); RDW 11.8 % (11.5-14.5); WBC 7.54 X 10*3/uL (4.50-10.00)
[2024-08-06] MEDS ORDERED: DEXTROSE 50% SYRINGE 50 ML IVP PRN ×2 (09:26)
--- NOTE | 2024-08-06 09:28 | P.PN ---
Subjective Progress Note Date: 08/06/24 N.p.o. for laparoscopic cholecystectomy. Reports right upper quadrant -positive pain. Denies nausea /vomiting. Denies chills or sweats. Complains of headache. Maintained on IV fluid hydration and Zosyn. Afebrile, normal WBC. Renal function stable. 08/06/2024 status post laparoscopic cholecystectomy, tolerated procedure well. Reported gas pain postop, required Dilaudid. Pain currently controlled, passing flatus. Feels better, sitting up in chair, playing cards with significant other. ambulating, tolerating exertion well.Denies nausea or vomiting. No bowel movement. Afebrile, normal WBC. Hemoglobin, renal function stable. T. bili 0.3. Blood sugars controlled. Objective - Vital Signs Vital signs: Vital Signs Temp 98.4 F 08/06/24 07:35 Pulse 69 08/06/24 07:35 Resp 16 08/06/24 07:35 BP 123/69 08/06/24 07:35 Pulse Ox 95 08/06/24 07:35 FiO2 Intake & Output 08/05/24 08/06/24 08/06/24 18:59 06:59 18:59 Intake Total 1018 Output Total 10 Balance 1008 Intake: IV 900 Oral 118 Output: Estimated Blood Loss 10 Other: Voiding Method Toilet Toilet # Voids 1 - Exam PHYSICAL EXAMINATION: VS: Reviewed General: Alert and oriented x 3, sitting up in chair, no acute distress HEENT: Normocephalic.Pupils reactive. Conjunctiva normal. NECK: Supple, no JVD. CHEST EXAMINATION: Unlabored, equal air entry, clear to auscultation. CARDIAC: Normal S1, S2 with no gallops. No murmurs ABDOMEN: Soft. Status post surgery, positive bowel sounds Extremities: no edema. No clubbing or cyanosis. NEURO: Cranial nerves II through XII grossly intact, strength and sensation grossly intact. Skin: Warm and dry, no rashes noted - Labs CBC & Chem 7: 08/06/24 05:49 08/06/24 02:27 Labs: Abnormal Lab Results - Last 24 Hours (Table) 08/05/24 08/05/24 08/06/24 Range/Units 02:45 02:45 02:27 RBC 3.50 L (4.10-5.20) X 10*6/uL Hgb 10.1 L (12.0-15.0) g/dL Hct 30.2 L (37.2-46.3) % MPV (9.5-12.2) FL Eosinophils # (0.04-0.35) X 10*3/uL Carbon Dioxide 20.8 L (21.6-31.8) mmol/L BUN 4.9 L 4.3 L (9.0-27.0) mg/dL BUN/Creatinine Ratio 6.12 L 5.38 L (12.00-20.00) Ratio Total Bilirubin 0.2 L (0.3-1.2) mg/dL Unconjugated Bilirubin >0 L >0.10 L (0.20-1.00) mg/dL AST 119 H (13-35) U/L ALT 111 H (8-44) U/L Total Protein 5.7 L (6.2-8.2) g/dL 08/06/24 Range/Units 05:49 RBC 3.58 L (4.10-5.20) X 10*6/uL Hgb 10.1 L (12.0-15.0) g/dL Hct 29.1 L (37.2-46.3) % MPV 9.4 L (9.5-12.2) FL Eosinophils # 0.03 L (0.04-0.35) X 10*3/uL Carbon Dioxide (21.6-31.8) mmol/L BUN (9.0-27.0) mg/dL BUN/Creatinine Ratio (12.00-20.00) Ratio Total Bilirubin (0.3-1.2) mg/dL Unconjugated Bilirubin (0.20-1.00) mg/dL AST (13-35) U/L ALT (8-44) U/L Total Protein (6.2-8.2) g/dL Assessment and Plan Assessment: Acute cholecystitis, status post laparoscopic cholecystectomy Anxiety/depression Diabetes type 2 [id number] DVT prophylaxis and GI prophylaxis. Plan: Continue current medication regimen ,monitoring and symptomatic treatment.increase ambulation as tolerated. Maintain aggressive pulmonary toileting with incentive spirometer ordered. Medically cleared for discharge. Follow-up with PCP in 1 week. The impression and plan of care has been dictated as directed. : I performed a history and examination of this patient, discussed the same with the dictator. I agree with the dictator's note ,documented as a scribe. Any additional findings or plans will be noted.
[2024-08-06 12:13] LABS: Glucose,Whole Blood 114 mg/dL (70-110)
[2024-08-06] MEDS: INSULIN ASPART (NovoLOG) 100 UNIT/ML VIAL SQ SCH (12:17)
--- NOTE | 2024-08-06 13:12 | P.DS ---
Providers Date of admission: 08/03/24 09:02 Expected date of discharge: 08/06/24 Attending physician: Phillip Feliciano DO Consults: 08/03/24 08:51 Consult Physician Urgent Consulting Provider: Mariano Britton Reason/Comments: Medical management Do you want consulting provider notified?: Yes Primary care physician: Rima Aleman Hospital Course: Discharge diagnosis 1. Acute cholecystitis Hospital course This is a 33-year-old female who presented with right upper quadrant abdominal pain. She had a RUQ US performed concerning for acute cholecystitis with stone impacted in Gallbladder neck. Patient is status post laparoscopic cholecystectomy. Patient tolerated surgery well. Her pain is controlled. She is tolerating diet. She is afebrile. She has been up and ambulating. She is stable for discharge. Please refer to chart for any further details. Physician Community Program Assistant note has been reviewed by physician. Signing provider agrees with the documented findings, assessment, and plan of care. Attestation Patient seen and examined at bedside. Doing well since her surgery for laparoscopic cholecystectomy. Pain has significantly improved. Tolerating diet. She is surgically stable for discharge. Bilirubin and laboratory values were reviewed. She is to follow-up in the outpatient clinic in 2 weeks. Ashley Ramos DO Patient Condition at Discharge: Stable Plan - Discharge Summary New Discharge Prescriptions: New HYDROcodone/APAP 7.5-325MG [[place] 7.5-325] 1 tab PO Q6HR PRN 3 Days #12 tab PRN Reason: Pain Continue Lisdexamfetamine Dimesylate [Vyvanse] 40 mg PO AC-BRKFST Lisdexamfetamine Dimesylate [Vyvanse] 30 mg PO AC-BRKFST lamoTRIgine 150 mg PO BID metFORMIN HCL 500 mg PO DAILY hydrOXYzine pamoate [Vistaril] 25 mg PO QID busPIRone HCL [Buspar] 30 mg PO BID Discharge Medication List Lisdexamfetamine Dimesylate [Vyvanse] 30 mg PO AC-BRKFST 08/03/24 [History] Lisdexamfetamine Dimesylate [Vyvanse] 40 mg PO AC-BRKFST 08/03/24 [History] busPIRone HCL [Buspar] 30 mg PO BID 08/03/24 [History] hydrOXYzine pamoate [Vistaril] 25 mg PO QID 08/03/24 [History] lamoTRIgine 150 mg PO BID 08/03/24 [History] metFORMIN HCL 500 mg PO DAILY 08/03/24 [History] HYDROcodone/APAP 7.5-325MG [[place] 7.5-325] 1 tab PO Q6HR PRN 3 Days #12 tab 08/06/24 [Rx] Follow up Appointment(s)/Referral(s): Mariano Britton MD [STAFF PHYSICIAN] - 1 Week Phillip Feliciano DO [Medical Doctor] - 08/20/24 8:00 am Patient Instructions/Handouts: *Surgery [facility] - Laparoscopic Cholecystectomy Discharge Instructions Activity/Diet/Wound Care/Special Instructions: No driving while taking [place] No lifting over 10 pounds You may shower. No soaking or tub baths for 2 weeks Very light activity until you are reevaluated at your follow up appointment with your surgeon Follow a low fat diet Discharge Disposition: HOME SELF-CARE
== END 2024-08-06 13:40 | disposition home or self-care (01) ==
LOC: EC 05:40 → 6NMEDSUR 09:02
PROVIDERS: ADMIT Surgery; ATTEND Surgery
DX: K80.12 Calculus of gallbladder with acute and chronic cholecystitis without obstruction (principal); R51.9 Headache, unspecified; E11.9 Type 2 diabetes mellitus without complications; R79.89 Other specified abnormal findings of blood chemistry; F41.9 Anxiety disorder, unspecified; F32.A Depression, unspecified; F17.290 Nicotine dependence, other tobacco product, uncomplicated; Z79.84 Long term (current) use of oral hypoglycemic drugs; Z79.899 Other long term (current) drug therapy
CPT/HCPCS: 36415; 76705; 80048; 80053; 80076; 81003; 81025; 83690; 85025; 88304; 96361; 96374; 96375; 96376; 99285

== ENCOUNTER → 2025-06-24 | Outpatient (CLI) | payer OTHER ==
[2025-06-24 15:06] LABS: Basophils # (A) 0.07 X 10*3/uL (0.00-0.10); Basophils % (A) 0.8 %; Eosinophils # (A) 0.21 X 10*3/uL (0.04-0.35); Eosinophils % (A) 2.4 %; HCT 37.7 % (37.2-46.3); HGB 12.8 g/dL (12.0-15.0); Immature Grans, Automated 0.20 %; Lymphocytes # (A) 2.92 X 10*3/uL (0.90-5.00); Lymphocytes % (A) 33.1 %; MCH 28.2 pg (27.0-32.0); MCHC 34.0 g/dL (32.0-37.0); MCV 83.0 FL (80.0-97.0); Monocytes # (A) 0.60 X 10*3/uL (0.20-1.00); Monocytes % (A) 6.8 %; NRBC Per 100 WBC 0 X 10*3/uL (0.00-0.01); Neutrophils # (A) 5.00 X 10*3/uL (1.80-7.70); Neutrophils % (A) 56.7 %; Platelet Count 494 X 10*3/uL (140-440); RBC 4.54 X 10*6/uL (4.10-5.20); RDW 12.7 % (11.5-14.5); WBC 8.82 X 10*3/uL (4.50-10.00)
== END | disposition home or self-care (01) ==
LOC: LABWHC1 11:23
PROVIDERS: ATTEND Physician Assistant
DX: D72.819 Decreased white blood cell count, unspecified (principal)
CPT/HCPCS: 36415; 85025